=== PATIENT | male | born 1965 | race Caucasian/White ===

== ENCOUNTER 2023-05-29 19:02 | Emergency (ER) | payer OTHER, SELFPAY ==
[2023-05-29 19:14] VITALS: BP 161/88; PULSE 80; RESP 16; TEMP 36.9; O2SAT 99; BMI 32.5
--- NOTE | 2023-05-29 19:50 | XR_ITS ---
Patient: JJ NIXON Facility:?[facility] Patient ID:?[id number] Site Patient ID:?[id number] Site :?[id number] Study:?XRay-Extremity Left HAND 3V-05/29/2023 8:06:57 PM Ordering Physician:?DR POOLE Final Report: Indication: CRUSH INJURY, LAC, 2ND METACARPAL INJURY Technique: Three views of the left hand. Comparison: None. Findings: No acute displaced fracture or malalignment. Soft tissue swelling of radial aspect of the hand. Impression: No acute displaced fracture or malalignment. Dictated by Andrea Cardozo MD @ 05/29/2023 8:16:10 PM Signed by:?Andrea Cardozo MD @05/29/2023 8:16:10 PM (Electronic Signature)
--- NOTE | 2023-05-29 21:12 | ED_ITS ---
HPI - General Adult General Date Seen: 05/29/23 Chief complaint: Laceration/Wound Stated complaint: Lac L hand Time Seen by Provider: 05/29/23 19:50 History of Present Illness HPI narrative: Pleasant 57-year-old gentleman presents to the ER today with a laceration affecting the webspace between his thumb and index finger on his left hand. He has injuries to both of his wrists and actually just is recovering from a wrist surgery done by Dr. Prather at [facility]. He had been wearing a brace on his left wrist and hand and thumb for the past several weeks and just took it off a couple of weeks ago so still has some residual stiffness in his th umb and fingers. He was working this evening to build his shed for a couch to deliver her calf in. He was screwing a 2 x 4 into a 4 by for post when the 2 x 4 abruptly spun down and pinched his hand between the boards. He suffered a laceration. He is having pain in the webspace. No associated numbness or tingling. He is not able to move his thumb or index finger very much, but that was the way they were before the injury because of the stiffness. No new stiffness. No new numbness. He had brisk dark red venous oozing that was controlled by direct pressure. He is otherwise healthy with no diabetes or immunosuppression. Last tetanus shot was 2020. Related Data Home Medications Medication Instructions Recorded Confirmed allopurinol 300 mg tablet 300 mg PO DAILY 05/29/23 05/29/23 atorvastatin 20 mg tablet 20 mg PO DAILY 05/29/23 05/29/23 carvedilol 12.5 mg tablet 12.5 mg PO BID 05/29/23 05/29/23 lisinopril 20 mg tablet 20 mg PO DAILY 05/29/23 05/29/23 Allergies Allergy/AdvReac Type Severity Reaction Status Date / Time seasonal Allergy Unknown Cough Uncoded 05/29/23 19:13 PFSH PFSH Social History Smoking Status: Unknown if ever smoked Exam Narrative: Exam Narrative: Constitutional: Appears well-developed and well-nourished. Alert. Conversant. Non toxic. HENT: Head: Atraumatic. Nose: Nose normal. Mouth/Throat: Oral mucosa is clear and moist. no trismus. Eyes: Conjunctivae normal. EOM normal. Pupils equal, round, and reactive to light. No scleral icterus. Neck: Normal range of motion. Neck supple. No tracheal deviation present. Cardiovascular: Normal rate, regular rhythm. Symmetric radial artery pulses . No active bleeding from his cut. Pulmonary/Chest: Effort normal. No stridor. No respiratory distress. Musculoskeletal: RUE: Normal range of motion. No tenderness. No deformity LUE: Normal range of motion in his shoulder, elbow, wrist. He does have stiffness in his left hand because of his recent splinting. He has limited flexion and extension of his thumb, and is not able to fully abducted against hit the body of his hand. He also has limited flexion and extension of the MCP, PIP, DI P joints of his 2nd digit, 3rd digit, 4th digit. No signs of any acute tendon injury affecting the 2nd digit today. Intact radial and ulnar nerve function in the thumb and index finger. There is a 5 cm linear laceration affecting the webspace between the thumb and index finger. It begins on the radial border of the hand and extends onto the palmar surface. No arterial bleeding. Exam and with a tourniquet a bloodless field and no visible foreign body. Patient also believes that there would be very little chance for any wood splinters to be in this cut. RLE: Normal range of motion. No edema. No tenderness. No deformity LLE: Normal range of motion. No edema. No tenderness. No deformity Lymph: No cervical adenopathy. Neurological: Alert and oriented to person, place, and time. Normal strength. CN II-VII intact. No sensory deficit. GCS eye subscore is 4. GCS verbal subscore is 5. GCS motor subscore is 6. Normal coordination Skin: Skin is warm and dry. No rash noted. No pallor. Normal capillary refill. Psychiatric: Normal mood. Normal affect. Const: Vital Signs, click to edit/add: Vital Signs - 24 hr 05/29/23 19:14 Temperature 98.5 F Pulse Rate [Pulse Oximeter] 80 Respiratory Rate 16 Blood Pressure [Ri ght Upper Arm] 161/88 H Pulse Oximetry 99 Oxygen Delivery Me thod Room Air Course Vital Signs Vital signs: Initial Vital Signs Temperature 98.5 F 05/29/23 19:14 Temperature Source Temporal Artery Scan 05/29/23 19:14 Pulse Rate 80 05/29/23 19:14 Pulse Rhythm Regular 05/29/23 19:14 Respiratory Rate 16 05/29/23 19:14 Blood Pressure 161/88 H 05/29/23 19:14 Blood Pressure Mean 112 H 05/29/23 19:14 Blood Pressure Position Sitting 05/29/23 19:14 Pulse Oximetry 99 05/29/23 19:14 Oxygen Delivery Method Room Air 05/29/23 19:14 Vital Signs Temperature 98.5 F 05/29/23 19:14 Pulse Rate 80 05/29/23 19:14 Respiratory Rate 16 05/29/23 19:14 Blood Pressure 161/88 H 05/29/23 19:14 Pulse Oximetry 99 05/29/23 19:14 Oxygen Delivery Method Room Air 05/29/23 19:14 Temperature 98.5 F 05/29/23 19:14 Pulse Rate 80 05/29/23 19:14 Respiratory Rate 16 05/29/23 19:14 Blood Pressure 161/88 H 05/29/23 19:14 Pulse Oximetry 99 05/29/23 19:14 Oxygen Delivery Method Room Air 05/29/23 19:14 Medical Decision Making MDM Narrative Medical decision making narrative: Findings and exam are consistent with an uncomplicated laceration which was repaired as noted above. Because this was a pinching/crushing injury we did obtain x-rays and they were fortunately negative for any fracture. There is no evidence at this time to suggest any associated fracture or foreign body. There is no evidence to suggest tendon or arterial injury and patient is neurologically in tact. The patient is to follow up for suture removal as instructed in 10 days. Indications to seek urgent reevaluation and signs of infection (including but not limited to increasing pain, redness, swelling, fevers, and drainage) were reviewed. Tetanus is up-to-date. This is a clean and non-contaminated wound in which prophylactic antibiotics are not indicated. An understanding of the discharge instructions and need for follow up were verbally confirmed. Imaging Data xr hand: Attestation: I have reviewed the pertinent imaging results. My impression: No acute fracture. No radiopaque foreign body Radiologist's impression: Impression: No acute displaced fracture or malalignment. Discharge Plan Discharge Clinical Impression: Laceration of hand, left Patient Disposition: Home, Self-Care Condition: Stable Instructions: Laceration (DC) Additional Instructions: As we discussed, keep your dressing dry and in place tonight and tomorrow. After that you can take the dressing off. Evaluate the wound for any sign of infection (redness, swelling, pus draining from the wound, or red streaks moving up her hand). Clean the wound gently with warm water if it is dirty or scab. After it is clean dab it dry with clean gauze or let it air dry. After this dry apply a small amount of antibiotic ointment, a clean sterile dressing and reapply dressing to your hand. Change the dressing once every day or more often it becomes dirty. Avoid driving or lifting objects with her left hand because this can put strain on the wound and pulled the stitches through. Keep the wound clean and dry and covered with a dressing. If you do see any signs of infection, or have any other concerns, come back to the ER right away Please follow-up with your regular doctor in 10 days to have the sutures removed. Prescriptions: No Action atorvastatin 20 mg tablet 20 mg PO DAILY carvedilol 12.5 mg tablet 12.5 mg PO BID lisinopril 20 mg tablet 20 mg PO DAILY allopurinol 300 mg tablet 300 mg PO DAILY Follow Up/Referrals: Suresh Garrido MD [Primary Care Provider] - Stand Alone Forms: [facility] Info Instructions Procedures Laceration Probable left hand radial aspect, webspace between thumb and index finger: Verification/time out: correct patient and correct site Site: hand Side (If applicable): left Size (cm): 5 Description: linear Depth: simple, single layer Local Anesthetic: bupivacaine 0.5% Amount of anesthesia used (mL): 7 Pre-repair: wound explored, irrigated extensively and deep structures intact Skin layer closed with: nylon Size (cm): 5-0 Number of sutures: 7 Technique: simple, interrupted
--- NOTE | 2023-05-29 21:18 | ED.NURSE ---
Dressing applied to sutures, bacitracin, adaptic, gauze secured in place with coban.
== END 2023-05-29 21:24 | disposition home or self-care (01) ==
PROVIDERS: Emergency Provider Emergency Medicine; PCP Family Medicine
DX: S61.412A Laceration without foreign body of left hand, initial encounter (principal); W31.2XXA Contact with powered woodworking and forming machines, initial encounter
CPT/HCPCS: 12002; 73130; 99283